=== PATIENT | male | born 1985 | race Caucasian/White ===

== ENCOUNTER 2021-02-26 05:43 | Outpatient (CLI) | payer BC ==
[~2021-02-26] VITALS: Ht 182.9 cm; Wt 88.5 kg
[2021-02-27] MEDS ORDERED: LAMO200T5 PO (10:39)
[2021-02-27] MEDS ORDERED: CALC600T91 PO (10:39)
[2021-02-27] MEDS ORDERED: CETI10TA17 PO (10:39)
== END 2021-02-27 16:34 | disposition home or self-care (01) ==
LOC: PREOP 05:43
PROVIDERS: ATTEND Otolaryngology Otolaryngology/Facial Plastic Surgery
DX: Z01.818 Encounter for other preprocedural examination (principal)

== ENCOUNTER 2021-03-06 06:32 | Day surgery (SDC) | payer BC ==
[~2021-03-06] VITALS: Ht 182 cm; Wt 88.5 kg
[2021-03-06] VITALS (11 sets, daily range): BP systolic 132–164; BP diastolic 82–106
[~2021-03-06 06:32] MED LIST: CALC600T91 PO; CETI10TA17 PO; LAMO200T5 PO
[2021-03-06] MEDS ORDERED: BSS 15 ML ONE (06:43)
[2021-03-06] MEDS ORDERED: PHENYLEPHRINE 0.5% NASAL SPR (NEO-SYNEPHRINE) REG ONE ×2 (06:43→12:00)
[2021-03-06] MEDS ORDERED: COCAINE HCL 4% 2 ML SYR ONE (06:43)
[2021-03-06] MEDS ORDERED: LIDOCAINE/EPI 1%-1:100,000 (XYLOCAINE) 20ML ONE (06:43)
[2021-03-06] MEDS ORDERED: HYDROCORTISONE 100 MG/2 ML (Solu-CORTEF) VIAL IV ONE (06:45)
[2021-03-06] MEDS: LACTATED RINGERS 1,000 ML IV PRN ×2 (07:00→09:09)
--- NOTE | 2021-03-06 07:05 | Progress Note-Pre Operative ---
Pre-Operative Progress Note H&P Reviewed The H&P was reviewed, patient examined and no changes noted. Date Seen by Provider: Mar 06, 2021 Time Seen by Provider: : Date H&P Reviewed: Mar 06, 2021 Time H&P Reviewed: :30 Pre-Operative Diagnosis: Bilat Crhonic Sinusitis, Dev Septum, Hyper of Inf Turbs ROSI HAMMOND MD Mar 06, 2021 07:05
[2021-03-06] MEDS ORDERED: ROCURONIUM 10 MG/ML 5 ML SYRINGE IV ONE (07:44)
[2021-03-06] MEDS ORDERED: fentaNYL INJ 100 MCG/2 ML AMP ONE (07:44)
[2021-03-06] MEDS ORDERED: LIDOCAINE PF 2% 5 ML (XYLOCAINE) VIAL ONE (07:44)
[2021-03-06] MEDS ORDERED: ONDANSETRON 4 MG/2 ML (SDV) Z0FRAN ONE (07:44)
[2021-03-06] MEDS ORDERED: SEVOFLURANE (ULTANE) 15 ML INHAL SOLN ONE ×3 (07:44→08:56)
[2021-03-06] MEDS ORDERED: MIDAZOLAM 2 MG/2 ML (VERSED) VIAL ONE (07:44)
[2021-03-06] MEDS ORDERED: proPOfol 200 MG/20 ML (DIPRIVAN) VIAL IV ONE (07:44)
[2021-03-06] MEDS ORDERED: LIDOCAINE JELLY 2% 6 ML SYRINGE ONE (07:50)
--- NOTE | 2021-03-06 09:29 | Progress Note-Post Operative ---
Post-Operative Progess Note Surgeon (s)/Consumer Loan Officer (s) Surgeon ROSI HAMMOND MD Consumer Loan Officer n/a Pre-Operative Diagnosis Bilat Crhonic Sinusitis, Dev Septum, Hyper of Inf Turbs Post-Operative Diagnosis same Post-Op Procedure Note Date of Procedure: Mar 06, 2021 Name of Procedure Performed: Bilat Ess, Septo, Bilat Red of Inf Turbs Description & Findings Description and Findings: n/a Anesthesia Type get Estimated Blood Loss minimal Packing none. Specimen(s) collected/removed bilat chronic sinus disease ROSI HAMMOND MD Mar 06, 2021 09:29
[2021-03-06] MEDS ORDERED: HYDROcodone/APAP 5 MG/325 MG (LORTAB) TAB PO PRN (09:30)
[2021-03-06] MEDS ORDERED: D5 1/2 NS W/KCL 20 MEQ/L 1,000 ML IV SCH (09:30)
[2021-03-06] MEDS ORDERED: ACETAMINOPHEN 325 MG TABLET PO PRN (09:30)
[2021-03-06] MEDS ORDERED: predniSONE 20 MG TAB PO ONE (09:30)
[2021-03-06] MEDS ORDERED: PROMETHAZINE INJ 25 MG/ML (PHENERGAN) AMP IVP PRN (09:30)
[2021-03-06] MEDS ORDERED: MEPERIDINE (DEMEROL) INJ 50 MG/ML IVP ONE (09:45)
[2021-03-06] MEDS ORDERED: morphine INJ 10 MG/ML 1ML (SYR OR VIAL) IVP ONE (09:45)
[2021-03-06] MEDS ORDERED: ONDANSETRON 4 MG/2 ML (SDV) Z0FRAN IVP PRN (09:45)
[2021-03-06] MEDS ORDERED: fentaNYL INJ 100 MCG/2 ML AMP IVP ONE (09:45)
[2021-03-06] MEDS ORDERED: ACHD5005 PO (11:00)
[2021-03-06] MEDS ORDERED: LEVO500T80 PO (11:00)
[2021-03-06] MEDS ORDERED: PRD20T PO (11:00)
--- NOTE | 2021-03-06 11:15 | Anesthesia-General Post-Op ---
General Patient Condition Mental Status/LOC: Same as Preop Cardiovascular: Satisfactory Nausea/Vomiting: Absent Respiratory: Satisfactory Pain: Controlled Complications: Absent Post Op Complications Complications None Follow Up Care/Instructions Patient Instructions None needed. Anesthesia/Patient Condition Patient Condition Patient is doing well, no complaints, stable vital signs, no apparent adverse anesthesia problems. No complications reported per nursing. JONO MITCHELL CRNA Mar 06, 2021 11:15
[2021-03-06] MEDS ORDERED: ONDANSETRON 4 MG (ZOFRAN) ORAL DISSOLVE TAB PO ONE (12:00)
== END 2021-03-06 12:45 ==
LOC: SDC 06:32
PROVIDERS: ATTEND Otolaryngology Otolaryngology/Facial Plastic Surgery
DX: J32.8 Other chronic sinusitis (principal); J34.2 Deviated nasal septum; J34.3 Hypertrophy of nasal turbinates; J34.89 Other specified disorders of nose and nasal sinuses; R09.81 Nasal congestion; R56.9 Unspecified convulsions; Z88.1 Allergy status to other antibiotic agents; Z88.0 Allergy status to penicillin; Z79.899 Other long term (current) drug therapy; Z79.51 Long term (current) use of inhaled steroids
CPT/HCPCS: 87081